=== PATIENT | male | born 1945 | race Caucasian/White ===

== ENCOUNTER → 2016-09-24 | Day surgery (SDC) | payer BC, MEDICARE ==
--- NOTE | 2016-08-30 17:13 | MH ---
cc: ERIBERTO VARGAS M.D. DATE OF ADMISSION: 09/24/2016 ADMISSION DIAGNOSIS Cataract, left eye. HISTORY OF PRESENT ILLNESS This 70-year-old white male is coming through [facility] for the purpose of a lens extraction of the left eye with intraocular lens implant under local anesthesia. He has noticed decreasing visual acuity interfering with his daily activities and elected to have the above procedure. His best corrected visual acuity in room light is 20/40 -1 in the right eye and 20/40 -2 in the left. PAST MEDICAL HISTORY The patient does have a history of - 1. LASIK surgery in his eyes. 2. Atrial fibrillation. 3. Rosacea. PAST SURGICAL HISTORY 1. The above mentioned LASIK in both eyes. 2. Appendectomy. 3. Heart ablation for the atrial fibrillation. 4. Pilonidal cyst. DAILY MEDICATIONS 1. Probiotic. 2. Vitamins. 3. Aspirin 81 mg. 4. Calcium. 5. Hydrochlorothiazide. 6. Cream for his rosacea. ALLERGIES HE HAS NO KNOWN ALLERGIES. SOCIAL HISTORY Does not smoke. Drinks two or three beers a day. FAMILY HISTORY Positive for parents with cataracts. REVIEW OF SYSTEMS HEAD: Patient denies severe headaches, dizziness or recent head injury. EARS: The patient has a hearing loss and wears hearing aids. He has ringing in his ears. NOSE: Patient denies nasal discharge, obstruction or frequent colds. MOUTH AND THROAT: Patient denies soreness of the mouth or tongue, bleeding gums, trouble swallowing, changes in voice or sore throat. NECK: Patient denies neck pain or swelling, limitation of neck movement or neck injury. CARDIOPULMONARY SYSTEM: Patient denies shortness of breath, orthopnea, chronic cough, sputum production, hemoptysis, chest pain, wheezing, palpitations or light-headedness. GI SYSTEM: Patient denies poor appetite, nausea, vomiting, abdominal pain, ulcers, hemorrhoids or change in bowel habits. SYSTEM: The patient denies urinary frequency, dysuria, change in urine color. NERVOUS SYSTEM: Patient denies convulsions, vertigo, stroke, numbness or weakness. PHYSICAL EXAMINATION VITAL SIGNS: Blood pressure is 118/78, pulse 68, respirations 20. HEAD: Normocephalic, atraumatic. NOSE: Without rhinorrhea. THROAT: Clear. NECK: Supple. CHEST: Clear. HEART: Regular rhythm. ABDOMEN: Without tenderness. EXTREMITIES: With ankle edema. NEUROLOGIC: Within normal limits. MENTAL STATUS: Within normal limits. EYE EXAM: The patient's best corrected visual acuity in room light is 20/40 -1 in the right eye and 20/40 -2 in the left. Visual hoover are full to confrontation testing. Extraocular muscle exam reveals full versions with orthophoria at distance and near. Pupils are 3 mm equal, round, and reactive to light without afferent defect. Anterior segment examination reveals dermatochalasis of the eyelid skin. There are nuclear sclerotic and posterior subcapsular cataract changes bilaterally. Intraocular pressure is 24 in the right eye and 17 in the left by applanation tonometry. Dilated fundus exam reveals sharp disk with cup-to-disk ratio 0.3 in the right eye and 0.4 in the left. There is an epiretinal membrane in the macula of each eye. A posterior vitreous detachment is present bilaterally. IMPRESSION 1. Bilateral cataracts. 2. Chronic open angle glaucoma, moderate, both eyes. 3. Epiretinal membrane of the macula, both eyes. 4. Posterior vitreous detachment, both eyes. 5. Dermatochalasis. 6. Status post LASIK surgery bilaterally. PLAN The plan is lens extraction of the left eye with intraocular lens implant under local anesthesia through [facility]. Iris retractors will be used in this patient who does not dilate well. The patient has been cleared medically. He has been counseled as to the risks, benefits and alternatives and elected to proceed. I feel that cataract surgery will improve the quality of life and activities of daily living in this patient. MD KARINE Robledo/DEYSI /4:36 PM /4:54 PM ABIGAIL
[~2016-09-24] VITALS: Ht 180.3 cm; Wt 76.0 kg
[~2016-09-24] MED LIST: ACETYLCHOLINE CHL OPHT SOLN 1:100 2 ML VIAL ONE; ASPI1TAB69 PO; CYCLOPENTOLATE HCL 1% OPHT SOLN 2 ML BTL ONE; DICLOFENAC SOD 0.1% OPHT SOLN 2.5 ML BTL ONE; EPINEPHrine HCL (1:1000) 1 MG/ML VIAL ONE; EPINEPHrine HCL (1:1000) 30 MG/30 ML VIAL ONE; GATIFLOXACIN 0.5% OPHT SOLN 2.5 ML BTL ONE; HYALURONIDASE/LIDOCAINE/BUPIVACAINE 4.5 ML SYR LEFT EYE ONE; HYALURONIDASE/LIDOCAINE/BUPIVACAINE 6 ML SYR LEFT EYE ONE; HYDR25TA5 PO; MIDAZOLAM HCL 2 MG/2 ML VIAL ONE; PILOCARPINE HCL 2% OPHT SOLN 15 ML BTL LEFT EYE ONE; PILOCARPINE HCL 2% OPHT SOLN 15 ML BTL ONE; PROPARACAINE HCL 0.5% OPHT SOLN 15 ML BTL LEFT EYE ONE; PROPARACAINE HCL 0.5% OPHT SOLN 15 ML BTL ONE; PROPOFOL 200 MG/20 ML AMP ONE; SODIUM CHLORID 0.9% 500 ML INJ 500 ML ONE; TROPICAMIDE 1% OPHT SOLN 15 ML BTL ONE; VISCOAT OPHT IRRIG SOLN 0.75 ML SYRINGE LEFT EYE ONE; acetaZOLAMIDE SEQUELS 500 MG SUSTAINED RELEASE CAP ONE
[2016-09-24 06:30] VITALS: BP 137/78; PULSE 60; RESP 16; TEMP 98.1; O2SAT 97
[2016-09-24 06:35] VITALS: PULSE 60
[2016-09-24] MEDS: PHENYLEPHRINE HCL 2.5% OPTH SOLN 2 ML BTL LEFT EYE SCH ×4 (06:40→06:49)
[2016-09-24] MEDS: DICLOFENAC SOD 0.1% OPHT SOLN 2.5 ML BTL LEFT EYE SCH ×4 (06:40→06:49)
[2016-09-24] MEDS: GATIFLOXACIN 0.5% OPHT SOLN 2.5 ML BTL LEFT EYE SCH ×4 (06:40→06:49)
[2016-09-24] MEDS: TROPICAMIDE 1% OPHT SOLN 15 ML BTL LEFT EYE SCH ×4 (06:40→06:49)
[2016-09-24] MEDS: CYCLOPENTOLATE HCL 1% OPHT SOLN 2 ML BTL LEFT EYE SCH ×4 (06:40→06:49)
[2016-09-24 07:10] VITALS: PULSE 57
[2016-09-24] MEDS: TOBRAMYCIN/DEXAMETHASONE OPTH OINT 3.5 GM TUBE ONE ×2 (08:13→09:27)
--- NOTE | 2016-09-24 10:01 | MP ---
cc: ERIBERTO MORGAN DATE OF SURGERY: 09/24/2016 PREOPERATIVE DIAGNOSIS Cataract, left eye. POSTOPERATIVE DIAGNOSIS Cataract, left eye. OPERATION Extracapsular cataract extraction with posterior chamber intraocular lens implant by phacoemulsification, left eye. SURGEON Eriberto Morgan M.D. ANESTHESIA Local. COMPLICATIONS None. INDICATIONS See history and physical previously dictated. OPERATIVE PROCEDURE The patient had adequate retrobulbar and eyelid blocks administered in the holding area and was brought to the operating room. The left eye was prepped and draped in the usual sterile ophthalmic manner. A lid speculum was inserted in the left eye. A 4-0 silk bridle suture was placed through the conjunctiva near the superior rectus muscle and it was tagged to the drape. A fornix-based conjunctival flap was prepared spanning approximately 5 mm in width. Hemostasis was obtained with wet-field cautery. A 3.5 mm groove was made 1 mm from the limbus and dissected up to the limbus in the form of a scleral pocket incision. A stab incision was then made at the 2 o'clock position. Viscoelastic was injected into the anterior chamber. In order to maintain an adequately dilated pupil, it was elected to use iris retractors in this case. Stab incisions were made at the 1 o'clock, 3 o'clock, 5 o'clock, 8 o'clock and 10 o'clock positions. Iris retractors were then inserted through the stab incisions in the peripheral cornea and positioned to enlarge the size of the pupil. The anterior chamber was entered with a 2.75 mm keratome through the scleral pocket incision. A 360 degree continuous curvilinear capsulorrhexis was then performed. Hydrodissection was utilized to divide the nucleus into inner and outer components and to separate the cortex from the capsule. Phacoemulsification was then utilized to remove the nucleus. The outer nuclear layer was removed with irrigation and aspiration and short bursts of ultrasound as necessary. The cortex was removed with the irrigation-aspiration handpiece. The posterior capsule was polished with the capsule polisher. Viscoelastic was injected into the capsular bag. The intraocular lens was inspected and found to be in good condition. The lens utilized was an Garry, model SA60AT with a power of +21 diopters. The lens was inserted into the capsular bag. The five iris retractors were removed. The viscoelastic in the anterior chamber was then removed with the irrigation-aspiration hand piece. Viscoelastic was also removed from beneath the intraocular lens. The anterior chamber was filled with Miochol-E through the stab incision and pressurized. The wound was closed with one interrupted 10-0 nylon suture. The wound was checked for leaks and there were none. The 4-0 bridle suture was removed. The conjunctival flap was brought down over the wound and secured with cautery. Pilocarpine 2% eye drops were instilled topically. The lid speculum was removed. TobraDex ophthalmic ointment was applied. The eye was double patched and shielded. The patient tolerated the procedure well and left the Operating Room in satisfactory condition. ADDENDUM One 10-nylon suture was placed through the 2 o'clock stab incision as well. MD KARINE Robledo/JUAN ALBERTO /9:43 AM /9:55 AM
[2016-09-24 10:05] VITALS: BP 122/65; PULSE 64; RESP 16; TEMP 97.4; O2SAT 100
== END | disposition home or self-care (01) ==
LOC: CSDC 05:56
PROVIDERS: ATTEND Ophthalmology
DX: H25.812 Combined forms of age-related cataract, left eye (principal); H40.10X2 Unspecified open-angle glaucoma, moderate stage; H43.813 Vitreous degeneration, bilateral; I48.91 Unspecified atrial fibrillation; Z79.82 Long term (current) use of aspirin; Z83.518 Family history of other specified eye disorder
CPT/HCPCS: 00142; 66984; J0171; J2250; J7040; V2632

== ENCOUNTER → 2016-11-05 | Outpatient (CLI) | payer BC, MEDICARE ==
[~2016-11-05] MED LIST changes: -ACETYLCHOLINE CHL OPHT SOLN 1:100 2 ML VIAL ONE; -CYCLOPENTOLATE HCL 1% OPHT SOLN 2 ML BTL ONE; -DICLOFENAC SOD 0.1% OPHT SOLN 2.5 ML BTL ONE; -EPINEPHrine HCL (1:1000) 1 MG/ML VIAL ONE; -EPINEPHrine HCL (1:1000) 30 MG/30 ML VIAL ONE; -GATIFLOXACIN 0.5% OPHT SOLN 2.5 ML BTL ONE; -HYALURONIDASE/LIDOCAINE/BUPIVACAINE 4.5 ML SYR LEFT EYE ONE; -HYALURONIDASE/LIDOCAINE/BUPIVACAINE 6 ML SYR LEFT EYE ONE; -MIDAZOLAM HCL 2 MG/2 ML VIAL ONE; -PILOCARPINE HCL 2% OPHT SOLN 15 ML BTL LEFT EYE ONE; -PILOCARPINE HCL 2% OPHT SOLN 15 ML BTL ONE; -PROPARACAINE HCL 0.5% OPHT SOLN 15 ML BTL LEFT EYE ONE; -PROPARACAINE HCL 0.5% OPHT SOLN 15 ML BTL ONE; -PROPOFOL 200 MG/20 ML AMP ONE; -SODIUM CHLORID 0.9% 500 ML INJ 500 ML ONE; -TROPICAMIDE 1% OPHT SOLN 15 ML BTL ONE; -VISCOAT OPHT IRRIG SOLN 0.75 ML SYRINGE LEFT EYE ONE; -acetaZOLAMIDE SEQUELS 500 MG SUSTAINED RELEASE CAP ONE
[2016-11-05 10:25] LABS: AUTOMATED NEUTROPHIL # 3.6 TH/MM3 (1.8-7.7); BASOPHIL # 0.1 TH/MM3 (0-0.2); BASOPHIL % 0.8 % (0.0-2.0); EOSINOPHIL % 13.1 % (0.0-4.0); HEMATOCRIT 40.2 % (39.0-51.0); HEMO FLAGS DIFF FINAL; LYMPH % 28.7 % (9.0-44.0); LYMPHOCYTE # 2.2 TH/MM3 (1.0-4.8); MEAN CELL VOLUME 91.2 FL (80.0-100.0); MEAN CORPUSCULAR HGB CONC 32.9 % (32.0-36.0); NEUT % 47.4 % (16.0-70.0); PLATELET COUNT 185 TH/MM3 (150-450); RED BLOOD COUNT 4.41 MIL/MM3 (4.50-5.90); WHITE BLOOD COUNT 7.6 TH/MM3 (4.0-11.0)
== END ==
LOC: CPRE 09:53
PROVIDERS: ATTEND Ophthalmology
DX: Z01.812 Encounter for preprocedural laboratory examination (principal); H25.811 Combined forms of age-related cataract, right eye
CPT/HCPCS: 36415; 85025

== ENCOUNTER → 2016-11-12 | Day surgery (SDC) | payer BC, MEDICARE ==
--- NOTE | 2016-10-24 16:17 | MH ---
cc: ERIBERTO VARGAS DATE OF ADMISSION 11/12/2016 ADMISSION DIAGNOSIS Cataract right eye. HISTORY OF PRESENT ILLNESS This 71-year-old white male is coming through [facility] for the purpose of a lens extraction of the right eye with intraocular lens implant under local anesthesia. He had a similar procedure in the left eye in September and did well postoperatively and now is requesting cataract surgery for his right eye. His best corrected visual acuity is 20/25 -3 in the right eye and 20/20 -2 in the left. PAST MEDICAL HISTORY 1. The patient has a history of: Atrial fibrillation. 2. And rosacea. PAST SURGICAL HISTORY Surgical history includes: 1. LASIK surgery in both eyes as well as the cataract surgery on the left eye mentioned above. 2. He has also had appendectomy. 3. Pilonidal cyst. 4. Heart ablation. MEDICATIONS Daily medications include: 1. Probiotic. 2. Vitamin D. 3. Baby aspirin. 4. Calcium. 5. Cream for his rosacea. 6. Diuretic which is hydrochlorothiazide. ALLERGIES NO KNOWN ALLERGIES. SOCIAL HISTORY The patient does not smoke and drinks two or three beers a day. FAMILY HISTORY Positive for parents with cataracts. REVIEW OF SYSTEMS HEAD: Patient denies severe headaches, dizziness or recent head injury. EARS: The patient wears hearing aids for hearing problems and has tinnitus, ringing in his ears. Patient denies ear pain or discharge. NOSE: Patient denies nasal discharge, obstruction or frequent colds. MOUTH AND THROAT: Patient denies soreness of the mouth or tongue, bleeding gums, trouble swallowing, changes in voice or sore throat. NECK: Patient denies neck pain or swelling, limitation of neck movement or neck injury. CARDIOPULMONARY SYSTEM: Patient denies shortness of breath, orthopnea, chronic cough, sputum production, hemoptysis, chest pain, wheezing, palpitations or light-headedness. GI SYSTEM: Patient denies poor appetite, nausea, vomiting, abdominal pain, ulcers, hemorrhoids or change in bowel habits. SYSTEM: The patient denies urinary frequency, dysuria, change in urine color. NERVOUS SYSTEM: Patient denies convulsions, vertigo, stroke, numbness or weakness. PHYSICAL EXAMINATION VITAL SIGNS: Blood pressure last we took was 118/78, pulse 68, respirations 20. HEAD: Normocephalic, atraumatic. NOSE: Without rhinorrhea. THROAT: Clear. NECK: Supple. CHEST: Clear. HEART: Regular rhythm. ABDOMEN: Without tenderness. EXTREMITIES: With ankle edema. NEUROLOGICAL: Within normal limits. MENTAL STATUS: Within normal limits. EYE EXAMINATION The patient's best corrected visual acuity is 20/25 -3 in the right eye and 20/20 -2 in the left. Visual hoover are full to confrontation testing. Extraocular muscle exam reveals full versions with orthophoria at distance and near. Pupils are 3 mm equal, round, reactive to light without afferent defect. Anterior segment examination reveals nuclear sclerotic and posterior subcapsular cataract in the right eye and a posterior chamber intraocular lens in the left. Intraocular pressure was 20 in the right eye and 19 in the left by applanation tonometry. Dilated fundus exam revealed sharp disks with cup-to-disk ratio 0.3 in the right eye and 0.4 in the left. There is an epiretinal membrane in the macula of each eye. A posterior vitreous detachment is present bilaterally. IMPRESSION 1. Cataract right eye. 2. Pseudophakia left eye. 3. Status post LASIK surgery in both eyes. 4. Posterior vitreous detachment both eyes. 5. Epiretinal membrane macula, both eyes. 6. Glaucoma suspect. PLAN The plan is lens extraction of the right eye with intraocular lens implant under local anesthesia through [facility]. Iris retractors will be utilized in this patient whose pupils do not dilate well. The patient has been cleared medically. He has been counseled as to the risks, benefits and alternatives and elected to proceed. I feel that cataract surgery will improve the quality of life and activities of daily living in this patient. MD KARINE Robledo/SHANTA /3:53 PM /4:02 PM
[~2016-11-12] VITALS: Ht 180.3 cm; Wt 73.5 kg
[~2016-11-12] MED LIST changes: +ACETYLCHOLINE CHL OPHT SOLN 1:100 2 ML VIAL IO ONE; +CYCLOPENTOLATE HCL 1% OPHT SOLN 2 ML BTL ONE; +DICLOFENAC SOD 0.1% OPHT SOLN 2.5 ML BTL ONE; +EPINEPHrine HCL PF/SF (1:1000) 1 MG/ML AMP I-OCULAR ONE; +GATIFLOXACIN 0.5% OPHT SOLN 2.5 ML BTL ONE; +HYALURONIDASE/LIDOCAINE/BUPIVACAINE 4.5 ML SYR ONE; +HYALURONIDASE/LIDOCAINE/BUPIVACAINE 6 ML SYR ONE; +PHENYLEPHRINE HCL 2.5% OPTH SOLN 2 ML BTL ONE; +PILOCARPINE HCL 2% OPHT SOLN 15 ML BTL RIGHT EYE ONE; +PROPARACAINE HCL 0.5% OPHT SOLN 15 ML BTL ONE; +PROPOFOL 200 MG/20 ML AMP ONE; +SODIUM CHLORID 0.9% 500 ML INJ 500 ML ONE; +TETRACAINE 0.5% OPTH SOLN 15 ML BTL RIGHT EYE ONE; +TOBRAMYCIN/DEXAMETHASONE OPTH OINT 3.5 GM TUBE RIGHT EYE ONE; +TROPICAMIDE 1% OPHT SOLN 15 ML BTL ONE; +VISCOAT OPHT IRRIG SOLN 0.75 ML SYRINGE RIGHT EYE ONE; +acetaZOLAMIDE SEQUELS 500 MG SUSTAINED RELEASE CAP ONE
[2016-11-12 09:00] VITALS: PULSE 48
[2016-11-12 09:10] VITALS: BP 125/77; PULSE 48; RESP 16; TEMP 97.5; O2SAT 100
[2016-11-12 09:55] VITALS: PULSE 53
[2016-11-12 12:07] VITALS: TEMP 97.8
--- NOTE | 2016-11-12 12:29 | MP ---
cc: ERIBERTO MORGAN DATE OF SURGERY: November 12, 2016 PREOPERATIVE DIAGNOSIS: Cataract right eye. POSTOPERATIVE DIAGNOSIS: Cataract right eye. OPERATION: Extracapsular cataract extraction with posterior chamber intraocular lens implant by phacoemulsification, right eye. SURGEON: Eriberto Morgan M.D. ANESTHESIA: Local. COMPLICATIONS: None. INDICATIONS: See history and physical previously dictated. OPERATIVE PROCEDURE: The patient had adequate retrobulbar and eyelid blocks administered in the holding area and was brought to the operating room. The right eye was prepped and draped in the usual sterile ophthalmic manner. A lid speculum was inserted in the right eye. A 4-0 silk bridle suture was placed through the conjunctiva near the superior rectus muscle and it was tagged to the drape. A fornix-based conjunctival flap was prepared spanning approximately 5 mm in width. Hemostasis was obtained with wet-field cautery. A 3.5 mm groove was made 1 mm from the limbus and dissected up to the limbus in the form of a scleral pocket incision. A stab incision was then made at the 2 o'clock position. Viscoelastic was injected into the anterior chamber. In order to maintain an adequately dilated pupil, it was elected to use iris retractors in this case. Stab incisions were made at the 1 o'clock, 3 o'clock, 5 o'clock, 8 o'clock and 10 o'clock positions. Iris retractors were then inserted through the stab incisions in the peripheral cornea and positioned to enlarge the size of the pupil. The anterior chamber was entered with a 2.75 mm keratome through the scleral pocket incision. A 360 degree continuous curvilinear capsulorrhexis was then performed. Hydrodissection was utilized to divide the nucleus into inner and outer components and to separate the cortex from the capsule. Phacoemulsification was then utilized to remove the nucleus. The outer nuclear layer was removed with irrigation and aspiration and short bursts of ultrasound as necessary. The cortex was removed with the irrigation-aspiration handpiece. The posterior capsule was polished with the capsule polisher. Viscoelastic was injected into the capsular bag. The intraocular lens was inspected and found to be in good condition. The lens utilized was an Garry, model number SA60AT with a power of +20 diopters. The lens was inserted into the capsular bag. The five iris retractors were removed. The viscoelastic in the anterior chamber was then removed with the irrigation-aspiration hand piece. Viscoelastic was also removed from beneath the intraocular lens. The anterior chamber was filled with Miochol-E through the stab incision and pressurized. The wound was checked for leaks at this pressure and normalized pressure and there were none. The 4-0 bridle suture was removed. The conjunctival flap was brought down over the wound and secured with cautery. Pilocarpine 2% eye drops were instilled topically. The lid speculum was removed. TobraDex ophthalmic ointment was applied. The eye was double patched and shielded. The patient tolerated the procedure well and left the Operating Room in satisfactory condition. MD KARINE Robledo/EDGAR /12:04 PM /12:25 PM
[2016-11-12 12:33] VITALS: BP 134/81; PULSE 58; RESP 14; O2SAT 99
== END | disposition home or self-care (01) ==
LOC: PHSDC 08:03
PROVIDERS: ATTEND Ophthalmology
DX: H25.11 Age-related nuclear cataract, right eye (principal); I48.91 Unspecified atrial fibrillation; H43.813 Vitreous degeneration, bilateral; Z98.42 Cataract extraction status, left eye; Z96.1 Presence of intraocular lens
CPT/HCPCS: 66984; J0171; J7040; V2632